=== PATIENT | male | born 1935 | race Caucasian/White ===

== ENCOUNTER 2021-03-07 18:55 | Emergency (ER) | payer OTHER ==
[2021-03-07] MEDS ORDERED: ACETAMINOPHEN 500 MG TAB ONE (20:01)
[2021-03-07 23:45] LABS: Absolute Lymphocytes (CBC) 1.3 K/uL (0.7-4.9); Basophils % 0.8 % (0-1.3); Hematocrit 37.2 % (39.6-49.0); Lymphocytes % 22.5 % (15.3-44.8); MPV 10.3 fL (7.6-11.3); RBC Red Blood Cell Count 3.57 M/uL (4.33-5.43)
[2021-03-08] MEDS ORDERED: ACETAMINOPHEN 500 MG TAB ONE (00:08)
[2021-03-08] MEDS ORDERED: OSELTAMIVIR 75 MG CAP ONE (00:08)
[2021-03-08] MEDS ORDERED: CEFTRIAXONE/SWI 1gm 1 GM/10 ML SYR ONE (00:09)
[2021-03-08] MEDS ORDERED: FAMOTIDINE 20 MG/2 ML VIAL IV ONE (00:09)
[2021-03-08] MEDS ORDERED: AZITHROMYCIN 250 MG TAB ONE (00:09)
[2021-03-08] MEDS ORDERED: NA CHLORIDE 0.9% 100 ML ONE (00:09)
[2021-03-08 00:54] LABS: Albumin 3.5 g/dL (3.4-5.0); Bilirubin Total 0.3 mg/dL (0.2-1.0); C-Reactive Protein 8.02 mg/L (<3.00); Potassium 4.1 mmol/L (3.5-5.1); Protein, Total 7.8 g/dL (6.4-8.2)
[2021-03-08 01:09] LABS: Ferritin 313.4 ng/mL (26-388)
[2021-03-08] MEDS ORDERED: dexAMETHasone 10 MG/ML VIAL ONE (02:09)
[2021-03-08] MEDS ORDERED: ASPIRIN 81 MG CHEWABLE TABLET ONE (02:09)
--- NOTE | 2021-03-08 02:43 | EDPHYS ---
Physician Documentation [facility] Name: Mckinley Arredondo Age: 85 yrs Sex: Male : 1935 Arrival Date: 03/07/2021 Time: 18:57 Bed DIS4 Private MD: Lorena Handley C ED Physician Jed Guevara HPI: 03/07 23:27 This 85 yrs old Male presents to ER via Ambulatory with complaints of Fever, rosmery Congestion, Sore Throat. 23:27 The patient reports fever, that was measured at 102 degrees Fahrenheit. rosmery Historical: - Allergies: 19:43 No Known Allergies; bb - Immunization history:: Adult Immunizations up to date, Client reports receiving the 2nd dose of the Covid vaccine. - Social history:: Smoking status: Patient denies any tobacco usage or history of. ROS: 23:28 Eyes: Negative for injury, pain, redness, and discharge, ENT: Negative for injury, rosmery pain, and discharge, Neck: Negative for injury, pain, and swelling, Cardiovascular: Negative for chest pain, palpitations, and edema, Abdomen/GI: Negative for abdominal pain, nausea, vomiting, diarrhea, and constipation, Back: Negative for injury and pain, : Negative for injury, bleeding, discharge, and swelling, MS/Extremity: Negative for injury and deformity, Skin: Negative for injury, rash, and discoloration, Neuro: Negative for headache, weakness, numbness, tingling, and seizure, Psych: Negative for depression, anxiety, suicide ideation, homicidal ideation, and hallucinations, Allergy/Immunology: Negative for hives, rash, and allergies, Endocrine: Negative for neck swelling, polydipsia, polyuria, polyphagia, and marked weight changes, Hematologic/Lymphatic: Negative for swollen nodes, abnormal bleeding, and unusual bruising. 23:28 Constitutional: Positive for body aches, chills, fatigue, fever, malaise. Exam: 23:28 Head/Face: Normocephalic, atraumatic. Eyes: Pupils equal round and reactive to light, rosmery extra-ocular motions intact. Lids and lashes normal. Conjunctiva and sclera are non-icteric and not injected. Cornea within normal limits. Periorbital areas with no swelling, redness, or edema. ENT: Nares patent. No nasal discharge, no septal abnormalities noted. Tympanic membranes are normal and external auditory canals are clear. Oropharynx with no redness, swelling, or masses, exudates, or evidence of obstruction, uvula midline. Mucous membranes moist. Neck: Trachea midline, no thyromegaly or masses palpated, and no cervical lymphadenopathy. Supple, full range of motion without nuchal rigidity, or vertebral point tenderness. No Meningismus. Chest/axilla: Normal chest wall appearance and motion. Nontender with no deformity. No lesions are appreciated. Cardiovascular: Regular rate and rhythm with a normal S1 and S2. No gallops, murmurs, or rubs. Normal PMI, no JVD. No pulse deficits. Respiratory: Lungs have equal breath sounds bilaterally, clear to auscultation and percussion. No rales, rhonchi or wheezes noted. No increased work of breathing, no retractions or nasal flaring. Abdomen/GI: Soft, non-tender, with normal bowel sounds. No distension or tympany. No guarding or rebound. No evidence of tenderness throughout. Back: No spinal tenderness. No costovertebral tenderness. Full range of motion. Male : Normal genitalia with no discharge or lesions. Skin: Warm, dry with normal turgor. Normal color with no rashes, no lesions, and no evidence of cellulitis. MS/ Extremity: Pulses equal, no cyanosis. Neurovascular intact. Full, normal range of motion. Neuro: Awake and alert, GCS 15, oriented to person, place, time, and situation. Cranial nerves II-XII grossly intact. Motor strength 5/5 in all extremities. Sensory grossly intact. Cerebellar exam normal. Normal gait. Psych: Awake, alert, with orientation to person, place and time. Behavior, mood, and affect are within normal limits. 23:28 Constitutional: The patient appears febrile. Vital Signs: 19:41 BP 151 / 72; Pulse 87; Resp 18; Temp 102.5(O); Pulse Ox 94% on R/A; Weight 79.38 kg bb (R); Height 6 ft. 0 in. (182.88 cm) (R); Pain 7/10; 03/08 03:10 BP 103 / 60; Pulse 94; Resp 18 S; Temp 99.9(TE); Pulse Ox 92% on R/A; bb 03/07 19:41 Body Mass Index 23.73 (79.38 kg, 182.88 cm) MDM: 03/07 22:18 Patient medically screened. [facility] 23:29 Differential diagnosis: viral Infection, bacterial infection, bronchitis, pneumonia. [facility] Data reviewed: vital signs, nurses notes, lab test result(s), radiologic studies, CT scan, plain films. Data interpreted: secondary connector armature: rate is 87 beats/min, rhythm is regular, Pulse oximetry: on room air is 94 %. Test interpretation: by ED physician or midlevel provider: plain radiologic studies. Counseling: I had a detailed discussion with the patient and/or guardian regarding: the historical points, exam findings, and any diagnostic results supporting the discharge/admit diagnosis, lab results, radiology results, the need for outpatient follow up, for definitive care, a family practitioner, a infection control coordinator. 03/07 19:41 Order name: Flu 03/07 19:41 Order name: Strep 03/07 19:41 Order name: COVID-19 : Document "Date of Symptom Onset" if Symptomatic. 03/07 19:41 Order name: Influenza Screen (A ; Complete Time: 22:08 [facility] 03/07 19:41 Order name: Group A Streptococcus Rapid Sc; Complete Time: 22:08 [facility] 03/07 21:50 Order name: Throat Culture [facility] 03/07 22:35 Order name: SARS-COV-2 RT PCR; Complete Time: 22:42 [facility] 03/07 22:43 Order name: Chest Single View XRAY [facility] 03/07 23:22 Order name: CBC with Diff [facility] 03/07 23:22 Order name: Comprehensive Metabolic Panel; Complete Time: 01:46 [facility] 03/07 23:22 Order name: CRP; Complete Time: 01:46 [facility] 03/07 23:22 Order name: Ferritin; Complete Time: 01:46 [facility] 03/07 23:22 Order name: CBC with Automated Diff; Complete Time: 01:46 [facility] 03/07 23:22 Order name: CT Aorta for Dissection [facility] Administered Medications: 19:41 Drug: Tylenol 1000 mg Route: PO; 03/08 03:10 Follow up: Response: No adverse reaction 03/07 23:52 Drug: Rocephin (cefTRIAXone) 1 grams Route: IV; Rate: per protocol; Site: right ea antecubital; 03/08 00:00 Follow up: IV Status: Completed infusion; IV Intake: 10ml bb 03/07 23:52 Drug: Zithromax (azithromycin) 500 mg Route: PO; ea 03/08 00:00 Follow up: Response: No adverse reaction bb 03:10 Follow up: Response: No adverse reaction ea 03/07 23:52 Drug: Pepcid (famotidine) 20 mg Route: IVP; Site: right antecubital; ea 03/08 00:00 Follow up: Response: No adverse reaction bb 03:10 Follow up: Response: No adverse reaction ea 03/07 23:52 Drug: Tamiflu (oseltamivir) 75 mg Route: PO; ea 03/08 00:00 Follow up: Response: No adverse reaction bb 03:09 Follow up: Response: No adverse reaction ea 01:52 Drug: Decadron - Dexamethasone 10 mg Route: IVP; Site: left antecubital; bb 02:00 Follow up: Response: No adverse reaction bb 03:10 Follow up: Response: No adverse reaction ea 01:52 Drug: Aspirin Chewable Tablet 162 mg Route: PO; bb 02:00 Follow up: Response: No adverse reaction bb 03:09 Follow up: Response: No adverse reaction ea Disposition Summary: 03/08/21 02:43 Discharge Ordered Location: Home rosmery Problem: new rosmery Symptoms: have improved rosmery Condition: Stable rosmery Diagnosis - Coronavirus infection, unspecified - covid 18 rosmery - Disease of upper respiratory tract, unspecified - influenza b rosmery - Fever, unspecified rosmery Followup: rosmery - With: - When: 2 - 3 days - Reason: Recheck today's complaints, Continuance of care, Re-evaluation by your physician Discharge Instructions: - Discharge Summary Sheet rosmery - Fever, Adult rosmery - Influenza, Adult rosmery - Upper Respiratory Infection, Adult rosmery - Viral Respiratory Infection rosmery - Influenza, Adult, [id number] rosmery - Viral Respiratory Infection, [id number] rosmery - Fever, Adult, [id number] rosmery - COVID-19 rosmery - COVID-19 Frequently Asked Questions rosmery - Viral Illness, Adult rosmery - COVID-19: Quarantine vs. Isolation - [facility] - Aspirin and Your Heart rosemry Forms: - Medication Reconciliation Form rosmery - Thank You Letter rosmery - Antibiotic Education rosmery - Prescription Opioid Use rosmery Prescriptions: - albuterol sulfate 90 mcg/actuation Inhalation HFA aerosol inhaler - inhale 2 puff by INHALATION route every 6 hours; 1 puff; Refills: 0, Product rosmery Selection Permitted - dexamethasone 2 mg Oral tablet - take 1 tablet by ORAL route 2 times per day; 10 tablet; Refills: 0, Product [facility] Selection Permitted - ivermectin 3 mg Oral tablet - take 4 tablet by ORAL route once daily; 20 tablet; Refills: 0, Product rosmery Selection Permitted - Pepcid 20 mg Oral Tablet - take 1 tablet by ORAL route every 12 hours for 10 days; 20 tablet; Refills: 0, [facility] Product Selection Permitted - Tamiflu 75 mg Oral Capsule - take 1 tablet by ORAL route every 12 hours for 5 days; 10 tablet; Refills: 0, [facility] Product Selection Permitted - Zithromax 500 mg Oral Tablet - take 1 tablet by ORAL route once daily for 4 days; 4 tablet; Refills: 0, [facility] Product Selection Permitted Signatures: Dispatcher [employer] EDMS Jed Guevara MD MD cha Mickail, Joel, PA PA jmm Ballard, Brenda, RN RN bb Antunez, Elena, RN RN ea Corrections: (The following items were deleted from the chart) 03/07 20:49 19:41 CORONAVIRUS ordered. EDTN EDMS
--- NOTE | 2021-03-08 02:43 | ER ---
Nurse's Notes [facility] Name: Mckinley Arredondo Age: 85 yrs Sex: Male : 1935 Arrival Date: 03/07/2021 Time: 18:57 Bed DIS4 Private MD: Lorena Handley C Diagnosis: Coronavirus infection, unspecified-covid 18;Disease of upper respiratory tract, unspecified-influenza b ;Fever, unspecified Presentation: 03/07 19:41 Chief complaint: Patient states: he has congestion, sore throat, fever since . bb Coronavirus screen: fever, sore throat. Ebola Screen: No symptoms or risks identified at this time. Initial Sepsis Screen: Does the patient meet any 2 criteria? No. Patient's initial sepsis screen is negative. Does the patient have a suspected source of infection? No. Patient's initial sepsis screen is negative. Risk Assessment: Do you want to hurt yourself or someone else? Patient reports no desire to harm self or others. Onset of symptoms was March 04, 2021. 19:41 Method Of Arrival: Ambulatory bb 19:41 Acuity: JULIO 3 bb Triage Assessment: 19:43 General: Appears in no apparent distress. Behavior is calm, cooperative. Pain: Pain bb currently is 7 out of 10 on a pain scale. Neuro: Level of Consciousness is awake, alert, obeys commands, Oriented to person, place, time, situation. Cardiovascular: Capillary refill < 3 seconds Patient's skin is warm and dry. Respiratory: Respiratory effort is even, unlabored. GI: No signs and/or symptoms were reported involving the gastrointestinal system. Derm: Skin is dry, Skin is pale, Skin temperature is warm. Musculoskeletal: Circulation, motion, and sensation intact. Historical: - Allergies: 19:43 No Known Allergies; bb - Immunization history:: Adult Immunizations up to date, Client reports receiving the 2nd dose of the Covid vaccine. - Social history:: Smoking status: Patient denies any tobacco usage or history of. Screenin/01 03:09 Abuse screen: Denies threats or abuse. Nutritional screening: No deficits noted. ea Tuberculosis screening: No symptoms or risk factors identified. Fall Risk IV access (20 points). Assessment: 03/07 22:15 Reassessment: No changes from previously documented assessment. see triage assessment. bb 03/08 00:00 Reassessment: Patient is alert, oriented x 3, equal unlabored respirations, skin bb warm/dry/pink. pt waiting in diagnostic chair for diagnostic results with family. 03:09 General: Appears uncomfortable, Behavior is appropriate for age. Pain: Complains of ea pain in throat. Neuro: Level of Consciousness is awake, alert, obeys commands, Oriented to person, place, time. Respiratory: Airway is patent Respiratory effort is even, unlabored, Respiratory pattern is regular, symmetrical. Derm: Skin is dry, Skin is pale, Skin temperature is warm. Vital Signs: 03/07 19:41 BP 151 / 72; Pulse 87; Resp 18; Temp 102.5(O); Pulse Ox 94% on R/A; Weight 79.38 kg bb (R); Height 6 ft. 0 in. (182.88 cm) (R); Pain 7/10; 03/08 03:10 BP 103 / 60; Pulse 94; Resp 18 S; Temp 99.9(TE); Pulse Ox 92% on R/A; bb 03/07 19:41 Body Mass Index 23.73 (79.38 kg, 182.88 cm) ED Course: 03/07 18:57 Patient arrived in ED. mr 18:57 Lorena Handley MD is Private Physician. mr 19:43 Triage completed. bb 19:43 Arm band placed on Patient placed in waiting room, Patient notified of wait time. bb Family accompanied patient. 22:17 Jed Guevara MD is Attending Physician. rosmery 23:18 Chest Single View XRAY In Process Unspecified. EDME 03/08 01:25 Nemo Lomeli, EFREM is Primary Nurse. bb 01:44 CT Aorta for Dissection In Process Unspecified. EDMS 02:43 Lorena Handley MD is Referral Physician. rosmery 03:08 No provider procedures requiring assistance completed. IV discontinued, intact, bb bleeding controlled, No redness/swelling at site. Pressure dressing applied. 03:09 Patient has correct armband on for positive identification. Call light in reach. ea 03:09 Inserted saline lock: 20 gauge in right antecubital area, using aseptic technique. ea Blood collected. Administered Medications: 03/07 19:41 Drug: Tylenol 1000 mg Route: PO; bb 03/08 03:10 Follow up: Response: No adverse reaction ea 03/07 23:52 Drug: Rocephin (cefTRIAXone) 1 grams Route: IV; Rate: per protocol; Site: right ea antecubital; 03/08 00:00 Follow up: IV Status: Completed infusion; IV Intake: 10ml bb 03/07 23:52 Drug: Zithromax (azithromycin) 500 mg Route: PO; ea 03/08 00:00 Follow up: Response: No adverse reaction bb 03:10 Follow up: Response: No adverse reaction ea 03/07 23:52 Drug: Pepcid (famotidine) 20 mg Route: IVP; Site: right antecubital; ea 03/08 00:00 Follow up: Response: No adverse reaction bb 03:10 Follow up: Response: No adverse reaction ea 03/07 23:52 Drug: Tamiflu (oseltamivir) 75 mg Route: PO; ea 03/08 00:00 Follow up: Response: No adverse reaction bb 03:09 Follow up: Response: No adverse reaction ea 01:52 Drug: Decadron - Dexamethasone 10 mg Route: IVP; Site: left antecubital; bb 02:00 Follow up: Response: No adverse reaction bb 03:10 Follow up: Response: No adverse reaction ea 01:52 Drug: Aspirin Chewable Tablet 162 mg Route: PO; bb 02:00 Follow up: Response: No adverse reaction bb 03:09 Follow up: Response: No adverse reaction ea Intake: 00:00 IV: 10ml; Total: 10ml. bb Outcome: 02:43 Discharge ordered by MD. botello 03:10 Discharged to home bb 03:10 Condition: stable 03:10 Discharge instructions given to patient, family, Instructed on discharge instructions, follow up and referral plans. medication usage, Demonstrated understanding of instructions, follow-up care, medications, Prescriptions given X x 6 03:40 Patient left the ED. bb Signatures: Dispatcher [employer] EDMS Jed Guevara MD MD cha Rivera, Nemo Pollard RN RN Irlanda Adkins RN RN ea Corrections: (The following items were deleted from the chart) 05:25 03:07 Pulse 96bpm; Resp 20bpm; Pulse Ox 90%; Temp 99.6F; bb anthony
[2021-03-08 03:52] VITALS: BP 151/72
[2021-03-08 03:53] VITALS: TEMP 99.6; O2SAT 90
--- NOTE | 2021-03-08 09:44 | RAD REPORT ---
EXAM DESCRIPTION: RAD - Chest Single View - 03/07/2021 11:18 pm CLINICAL HISTORY: COUGH Chest pain. COMPARISON: CHEST PA AND LAT 2 VIEW dated 05/23/2012; CHEST SINGLE VIEW dated 02/18/2012; CHEST PA AN D LAT 2 VIEW dated 04/16/2009; CHEST PA AND LAT 2 VIEW dated 11/23/2007; Angio Aorta For Dissection clint ed 03/08/2021 FINDINGS: Portable technique limits examination quality. Interstitial lung markings are mildly prominent may indicate bronchitis or viral. The heart is normal in size. Tortuous thoracic aorta.
--- NOTE | 2021-03-09 09:15 | RAD REPORT ---
EXAM DESCRIPTION: Angio Aorta For Dissection 03/08/2021 2:09 AM CDT CLINICAL HISTORY: 85 years, Male, COUGH, weakness COMPARISON: None. TECHNIQUE: Multiple transaxial tomograms from the thoracic and abdominal aorta from the lung apex ba ses to the ischial tuberosities performed before and after the administration of 100 cc of Omnipaque 350 at a rate of 5 cc per second for complete opacification of the thoracic, abdominal aorta and juan pablo c arteries utilizing 2 mm slice thickness at 2 mm slice thickness. 2-D and 3-D multiplanar reformats, volume rendering technique and maximum intensity projection images were generated and reviewed. This exam was performed according to our departmental dose-optimization protocol, which includes auto mated exposure control, adjustment of the mA and/or kV according to patient size and/or use of iterat kimberly reconstruction technique. FINDINGS: Thoracic aorta: Demonstrate to be within normal limits. There is no evidence for thoracic aortic dissection. The asce nding thoracic aorta measured 4 cm on image 48. The aortic arch measured 2.9 cm on image 32. The desc ending thoracic aorta measured 2.6 cm on image 65. There is normal branching pattern of the aortic ar ch. There is no evidence for significant stenosis and/or occlusion of the proximal vessels. Abdominal aorta: The abdominal aorta demonstrate minimal atheromatous plaque formation as well as soft plaque infraren al portion. There is no evidence for aneurysm/or dissection. The proximal aspect of the abdominal aor ta measures 2.4 cm on image 96. Midportion of the abdominal aorta measured 2.5 cm on image 109. The d istal portion of the abdominal aorta measured 1.8 cm on image 127. The right common iliac artery pako ured 1.1 cm on image 153, the left common iliac artery measures 1.1 cm on image 150. The celiac trunk , superior mesenteric artery and inferior mesenteric artery demonstrate to be patent with no evidence for significant filling defect and/or stenosis. There is a single left renal artery with minimal ost ial lesion with no focal areas of significant stenosis. There is three-vessel supply within the right renal artery with no definitive focal areas of significant stenosis. Chest: The lung parenchyma demonstrate minimal bilateral apical pleural thickening. Minimal bullous c hanges/cystic changes within the mid/lower lung. Minimal dependent atelectatic changes lung bases. Th e trachea mainstem bronchus demonstrate to be unremarkable. There is no pleural/or pericardial effusi ons. The heart is normal in size. There are coronary artery calcifications. The pulmonary arteries de monstrate to be within normal limits with no significant major filling defects that will suggest pulm onary embolus. There is no significant mediastinal and/or hilar lymphadenopathy. The axillary regions demonstrate to be clear. The bone windows demonstrate mild diffuse bony osteopenia. Very minimal ant erior spondylosis within the lower thoracic spine. No significant skeletal lesions. Abdomen and pelvis: The liver demonstrated presence of a dome cyst measuring 3.5 x 2.9 cm on image 86 smaller cyst within the lateral segment left hepatic lobe measuring 1.4 cm on image 88. Otherwise th e liver, gallbladder, spleen, adrenal glands, pancreas demonstrate to be unremarkable. The kidneys demonstrate normal uptake of contrast media. There is a small exophytic upper pole left r enal cyst measuring 0.8 cm on image 105 and probable other cyst within the renal parenchyma. The unopacified stomach, large and small bowel demonstrate to be within normal limits. There is no ev idence for bowel dilatation/or free air. The urinary bladder demonstrate to be within normal limits. The prostate gland is prominent measuring 5.3 x 4.1 cm perhaps related to BPH. There is no retroperitoneal lymphadenopathy. There is no eviden ce for ascites. The bone windows demonstrate degenerative disc disease throughout lumbar spine. IMPRESSION: No evidence for thoracic or abdominal aortic dissection. 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 Coronary atherosclerosis. Minimal atheromatous plaque formation as well as soft plaque infrarenal portion of the abdominal aort a. Minimal bullous changes/cystic changes within the mid/lower lung. Hepatic and renal cysts. Prominent prostate gland perhaps related to BPH. Electronically signed by: Nader Collazo MD 03/08/2021 2:20 AM CDT Due to temporary technical issues with the PACS/Fluency reporting system, reports are being signed by the in house radiologists without review as a courtesy to insure prompt reporting. The interpreting radiologist is fully responsible for the content of the report.
== END 2021-03-08 03:40 | disposition home or self-care (01) ==
LOC: ER 18:55
DX: U07.1 COVID-19 (principal); J10.1 Influenza due to other identified influenza virus with other respiratory manifestations
CPT/HCPCS: 87070; 85025; 36415; 87081; 82728; 80053; 86140; 87804 ×2; 71275; 74175; 71045; 96375; 96374; 99284; U0003; Q9967; J1100